=== PATIENT | female | born 1960 | race Caucasian/White ===

== ENCOUNTER 2016-12-11 22:05 | Emergency (ER) | payer OTHER ==
[~2016-12-11] VITALS: Ht 160 cm; Wt 83.9 kg
--- NOTE | 2016-12-11 22:56 | ED DYSPNEA/ASTHMA COMPLAINT ---
History of Present Illness General Chief Complaint: Dyspnea (COPD, CHF, Other) Stated Complaint: DIFF BREATHING Source: patient, family, old records Exam Limitations: no limitations Vital Signs & Intake/Output Vital Signs & Intake/Output Vital Signs Date Time Temp Pulse Resp B/P B/P Pulse O2 O2 Flow FiO2 Mean Ox Delivery Rate 12/12 0306 97.8 71 18 152/78 95 Room Air 12/12 0148 73 18 141/85 96 Room Air 12/11 2221 97.6 84 16 154/90 97 Room Air ED Intake and Output 12/12 0000 12/11 1200 Intake Total 0 Output Total Balance 0 Intake, Oral 0 Patient 185 lb Weight Weight Estimated Measurement Method Triage Note: RECEIVED 56 YO FEMALE C/O WOKE UP AN HOUR AGO WITH SHORTNESS OF BREATH. PT DENIES HX OF ASTHMA, COPD OR CRDIAC. PT DENIES FEELING SOB IN TRIAGE. O2 SATS 97%. PT DENIES CHEST PAIN AT ANY TIME Triage Nurses Notes Reviewed? yes Onset: Just prior to arrival Duration: minute(s):, better, constant, gone now Timing: recent history Severity: moderate Activities at Onset: sleep Prior Episodes/Possible Cause: no prior episodes Modifying Factors: Improves With: rest. LMP (ages 10-50): post menopausal : No Patient currently breastfeeds: No HPI: Just prior to admission patient awoke with shortness of breath. She also complains of nasal congestion. She denies fever chills nausea vomiting diarrhea abdominal pain chest pain headache dysuria rash bleeding dizziness. Her shortness of breath is now improved being in an air-conditioned environment. Past History Travel History Traveled to [place] past 21 day No Medical History Any Pertinent Medical History? none Neurological: NONE EENT: NONE Cardiovascular: NONE Respiratory: NONE Gastrointestinal: NONE Hepatic: NONE Renal: NONE Musculoskeletal: NONE Psychiatric: NONE Endocrine: NONE Blood Disorders: NONE Cancer(s): NONE Surgical History Surgical History: non-contributory Psychosocial History What is your primary language Greenlandic Tobacco Use: Never used Family History Hx Contributory? No Review of Systems Review of Systems Constitutional: Reports: no symptoms. EENTM: Reports: no symptoms. Respiratory: Reports: see HPI, short of breath. Cardiovascular: Reports: no symptoms. GI: Reports: no symptoms. Genitourinary: Reports: no symptoms. Musculoskeletal: Reports: no symptoms. Skin: Reports: no symptoms. Neurological/Psychological: Reports: no symptoms. Hematologic/Endocrine: Reports: no symptoms. Immunologic/Allergic: Reports: no symptoms. All Other Systems: Reviewed and Negative Physical Exam Physical Exam General Appearance: well developed/nourished, alert, awake, anxious, obese Head: atraumatic, normal appearance Eyes: Bilateral: normal appearance, PERRL, EOMI. Ears, Nose, Throat: normal pharynx, normal ENT inspection Neck: normal inspection, supple, full range of motion, no midline tenderness Respiratory: normal breath sounds, chest non-tender, no respiratory distress, quiet respiration, lungs clear Cardiovascular: regular rate/rhythm, normal peripheral pulses, norml femoral pulses equa Peripheral Pulses: 4+ carotid (R), 4+ carotid (L) Gastrointestinal: normal bowel sounds, soft, non-tender, no organomegaly Extremities: normal inspection, normal capillary refill, normal range of motion, no edema Neurologic/Psych: no motor/sensory deficits, awake, alert, oriented x 3, normal gait, normal mood/affect, labor delivery specialist II-XII nml as tested Skin: intact, normal color Lymphatic: no anterior cervical beatris Core Measures ACS in differential dx? Yes ASA ordered for poss ACS? No-ACS ruled out Severe Sepsis Present: No Septic Shock Present: No Progress Differential Diagnosis: asthma, bronchitis, CHF, COPD, pneumonia Plan of Care: Orders Procedure Date/time Status TROPONIN LEVEL 12/12 0130 Complete TROPONIN LEVEL 12/11 2245 Complete MAGNESIUM 12/11 2245 Complete COMPREHENSIVE METABOLIC PANEL 12/11 2245 Complete CBC WITHOUT DIFFERENTIAL 12/11 2245 Complete EKG 12/11 2223 Active Laboratory Tests 12/12/16 0137: Troponin I < 0.01 12/11/16 2255: Anion Gap 11, Estimated GFR > 60, BUN/Creatinine Ratio 17.1, Glucose 101 H, Calcium 9.2, Magnesium 2.1, Total Bilirubin 0.4, AST 26, ALT 38, Alkaline Phosphatase 86, Troponin I < 0.01, Total Protein 6.8, Albumin 4.3, Globulin 2.5, Albumin/Globulin Ratio 1.7, CBC w Diff NO MAN DIFF REQ, RBC 4.30, MCV 88.4, MCH 29.7, RDW 13.9, MPV 7.8, Gran % 51.5, Lymphocytes % 36.6, Monocytes % 6.8, Eosinophils % 4.7, Basophils % 0.4, Absolute Granulocytes 4.3, Absolute Lymphocytes 3.0, Absolute Monocytes 0.6, Absolute Eosinophils 0.4, Absolute Basophils 0, PUBS MCHC 33.6 Diagnostic Imaging: Viewed by Me: Radiology Read. Discussed w/RAD: Radiology Read. CXR Impression: no acute abnormality Initial ED EKG: normal axis, normal intervals, normal p-waves, normal sinus rhythm, nonspecific ST T wave chg Rhythm Strip: normal sinus rhythm Departure Departure Time of Disposition: 227 Disposition: HOME OR SELF CARE Condition: Stable Clinical Impression Primary Impression: Dyspnea Qualifiers: Dyspnea type: shortness of breath Qualified Code: R06.02 - Shortness of breath Referrals: TREY ONEAL (PCP/Family) Departure Forms: Customer Survey General Discharge Information Critical Care Note Critical Care Note Critical Care Time: non-applicable
[2016-12-11 23:06] LABS: ABSOLUTE BASOPHIL COUNT 0 /CUMM (0.0-0.2); ABSOLUTE EOSINOPHIL COUNT 0.4 /CUMM (0.0-0.7); ABSOLUTE GRANULOCYTE CT 4.3 /CUMM (1.4-6.5); ABSOLUTE MONOCYTE COUNT 0.6 /CUMM (0.10-0.60); BASOPHIL % 0.4 % (0.0-2.0); EOSINOPHIL % 4.7 % (0-5); GRANULOCYTE % 51.5 % (42.2-75.2); MEAN CORPUSCULAR HGB 29.7 PG (27.0-31.0); MEAN CORPUSCULAR HGB CONC 33.6 G/DL (33.0-37.0); MEAN CORPUSCULAR VOLUME 88.4 FL (81.0-99.0); MEAN PLATELET VOLUME 7.8 FL (7.4-10.4); PLATELET COUNT 278 /CUMM (130-400); RBC DISTRIBUTION WIDTH 13.9 % (11.5-14.5); WHITE BLOOD CELL COUNT 8.3 /CUMM (4.8-10.8)
--- NOTE | 2016-12-11 23:32 | RADIOLOGY REPORT ---
EXAMINATION: CHEST 1 VIEW CLINICAL INFORMATION: Shortness of breath. Abnormal EKG. COMPARISON: None. TECHNIQUE: An AP view of the chest is provided. FINDINGS: The cardiac silhouette is not enlarged. The mediastinal and hilar contours are unremarkable. There are neither pleural effusions nor pneumothoraces. There are no consolidations. The osseous structures are unremarkable. IMPRESSION: No evidence for acute disease.
[2016-12-12 03:06] VITALS: BP 152/78
== END 2016-12-12 03:14 ==
LOC: ERH 22:05
PROVIDERS: Emergency Medicine
DX: R06.00 Dyspnea, unspecified (principal)
CPT/HCPCS: 93005; 93010